=== PATIENT | female | born 1950 | race American Indian/Alaskan Native ===

== ENCOUNTER 2019-04-27 09:56 | Outpatient (CLI) | payer MEDICARE, OTHER ==
--- NOTE | 2019-04-27 14:45 | Mammography Report ---
DIGITAL SCREENING MAMMOGRAM WITH CAD, 04/27/2019 INDICATION: Routine screening mammography. TECHNIQUE: Digital bilateral 2D mammography was obtained in the craniocaudal and mediolateral obliq ue projections. This examination was interpreted with the benefit of Computer-Aided Detection analysi s. COMPARISON: None available. However, she indicated that she had had a prior mammogram at [facility]. FINDINGS: Breast Density: The breasts are heterogeneously dense, which may obscure small masses. Right upper outer clustered calcifications and bilateral parenchymal asymmetries require additional i maging. IMPRESSION: Bilateral asymmetries and right calcifications requiring additional imaging. Recommend re call for bilateral spot compression and spot magnification views and bilateral breast ultrasound if n eeded. We will also attempt to obtain a previous mammogram for comparison. Follow up recommendation: Special View: Mag Category 0: Incomplete. Needs additional imaging evaluation and/or prior mammograms for comparison. A "normal" or negative report should not discourage follow up or biopsy of a clinically significant f inding. A written summary of these findings will be mailed to the patient. The patient will be entered into a mammography reporting system which will generate a reminder letter for the patient's next appointmen t at the appropriate interval. [employer] recommends yearly mammograms starting at age 40 and continuing as l shavon as a woman is in good health. Breast MRI is recommended for women with an approximate 20-25% or greater lifetime risk of breast cancer, including women with a strong family history of breast or ova neema cancer or who have been treated for Hodgkin's disease. Signer Name: Cesario Matthews MD Signed: 04/27/2019 2:41 PM Workstation Name: [id number]
== END 2019-04-27 09:57 | disposition home or self-care (01) ==
LOC: SPVWC 09:56
PROVIDERS: ATTEND Family Medicine
DX: Z12.31 Encounter for screening mammogram for malignant neoplasm of breast (principal); R92.1 Mammographic calcification found on diagnostic imaging of breast
CPT/HCPCS: 77067